=== PATIENT | female | born 1995 | race African-American/Black ===

== ENCOUNTER 2017-12-30 07:52 | Emergency (ER) | payer OTHER ==
[2017-12-30 07:59] VITALS: BP 133/85
[2017-12-30] MEDS ORDERED: IBUPROFEN 800 MG TABLET PO ONE (08:20)
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
[2017-12-30 08:50] LABS: APPEARANCE,URINE CLEAR; BILIRUBIN,URINE NEGATIVE (NEGATIVE); COLOR,URINE YELLOW; GLUCOSE, URINE NEGATIVE (NEGATIVE); KETONES,URINE NEGATIVE (NEGATIVE); LEUKOCYTE ESTERASE,URINE NEGATIVE (NEGATIVE); NITRITE,URINE NEGATIVE (NEGATIVE); PROTEIN,URINE NEGATIVE (NEGATIVE); URINE SPECIFIC GRAVITY 1.026; UROBILINOGEN,URINE NEGATIVE mg/dL (<2.0)
== END 2017-12-30 09:30 | disposition home or self-care (01) ==
LOC: ER 07:52
DX: S39.012A Strain of muscle, fascia and tendon of lower back, initial encounter (principal); V49.50XA Passenger injured in collision with unspecified motor vehicles in traffic accident, initial encounter; J45.909 Unspecified asthma, uncomplicated
CPT/HCPCS: 81001; 99283